=== PATIENT | male | born 1950 | race Caucasian/White ===

== ENCOUNTER 2017-02-09 14:12 | Inpatient (IN) | payer MEDICARE ==
[~2017-02-09] VITALS: Ht 177.8 cm; Wt 90.5 kg
[2017-02-09 14:14] VITALS: BP 154/82; PULSE 83; RESP 16; TEMP 97.8; O2SAT 97
--- NOTE | 2017-02-09 14:40 | PD ---
HPI Chief Complaint: Injury Time Seen by Provider: 14:25 Travel History International Travel<30 days: No Contact w/Intl Traveler<30days: No Traveled to known affect area: No History of Present Illness HPI 55 YO M with PMH of DM T2 presents to the ED for evaluation of 2 week history of right foot ulcer. Patient can identify no acute injury. He denies pain of the area, fevers, chills, nausea, vomiting. He states that the surrounding redness worsened 4 days ago which caused him to seek treatment. He saw the physician's assistant Dr. Fontanez today who sent him for admission. Patient states that he has not been taking his daibetic medications for "about a month" because "I' m in the doughnut hole on my insurance." PFSH Past Medical History Diabetes: Yes Patient Takes Glucophage: No Past Surgical History Abdominal Surgery: Yes (inguinal hernia repair 1996) Social History Alcohol Use: No Tobacco Use: No Substance Use: No Allergies-Medications (Allergen,Severity, Reaction): Coded Allergies: No Known Allergies (Unverified , 02/09/17) Reported Meds & Prescriptions Reported Meds & Active Scripts Active Active Prescriptions or Reported Medications Unobtainable Review of Systems Except as stated in HPI: all other systems reviewed are Neg Physical Exam Narrative GENERAL: Well-nourished, well-developed patient. SKIN: Focused skin assessment warm/dry. HEAD: Normocephalic. EYES: No scleral icterus. No injection or drainage. NECK: Supple, trachea midline. No JVD or lymphadenopathy. CARDIOVASCULAR: Regular rate and rhythm without murmurs, gallops, or rubs. RESPIRATORY: Breath sounds equal bilaterally. No accessory muscle use. GASTROINTESTINAL: Abdomen soft, non-tender, nondistended. MUSCULOSKELETAL: No cyanosis, trace edema of the left foot to the mid gallardo. FOCUSED RIGHT FOOT EXAM: 8cm x 5 cm diabetic ulcer right lateral fore foot. Penetrates to the muscle. Mild surrounding erythema to the midfoot. Patient is able to wiggle the toes. Sensation diminished in the forefoot. 2+ DP pulse BACK: Nontender without obvious deformity. No CVA tenderness. Data Data Last Documented VS Vital Signs Date Time Temp Pulse Resp B/P (MAP) Pulse Ox O2 Delivery O2 Flow Rate FiO2 02/09/17 14:27 96 Room Air 02/09/17 14:14 97.8 83 16 154/82 (106) Orders Orders Basic Metabolic Panel (Bmp) (02/09/17 14:34) Complete Blood Count With Diff (02/09/17 14:34) Blood Culture (02/09/17 14:34) Wound Culture And Gram Stain (02/09/17 14:34) Iv Access Insert/Monitor (02/09/17 14:34) Westergren Sedimentation Rate (02/09/17 14:34) C-Reactive Protein (Crp) (02/09/17 14:34) Coag Profile (02/09/17 14:34) Mri Foot W&W/O Contrast (02/09/17 ) Consult Podiatry (02/09/17 ) Vancomycin Inj (Vancomycin Inj) (02/09/17 15:15) Piperacil-Tazo 4.5 Gm Premix (Zosyn 4.5 (02/09/17 15:15) (Hub Use Only)Inp Phy Cons/Ref (02/09/17 ) Admit Order (Ed Use Only) (02/09/17 15:12) Labs Laboratory Tests Test 02/09/17 14:10 White Blood Count 10.3 TH/MM3 Red Blood Count 4.66 MIL/MM3 Hemoglobin 13.6 GM/DL Hematocrit 39.4 % Mean Corpuscular Volume 84.7 FL Mean Corpuscular Hemoglobin 29.3 PG Mean Corpuscular Hemoglobin Concent 34.6 % Red Cell Distribution Width 13.2 % Platelet Count 247 TH/MM3 Mean Platelet Volume 8.9 FL Neutrophils (%) (Auto) 70.3 % Lymphocytes (%) (Auto) 22.8 % Monocytes (%) (Auto) 5.6 % Eosinophils (%) (Auto) 0.8 % Basophils (%) (Auto) 0.5 % Neutrophils # (Auto) 7.2 TH/MM3 Lymphocytes # (Auto) 2.3 TH/MM3 Monocytes # (Auto) 0.6 TH/MM3 Eosinophils # (Auto) 0.1 TH/MM3 Basophils # (Auto) 0.1 TH/MM3 CBC Comment DIFF FINAL Differential Comment Prothrombin Time 10.3 SEC Prothromb Time International Ratio 0.9 RATIO Activated Partial Thromboplast Time 25.3 SEC Blood Urea Nitrogen 16 MG/DL Creatinine 1.07 MG/DL Random Glucose 420 MG/DL Calcium Level 8.9 MG/DL Sodium Level 136 MEQ/L Potassium Level 4.1 MEQ/L Chloride Level 102 MEQ/L Carbon Dioxide Level 27.1 MEQ/L Anion Gap 7 MEQ/L Estimat Glomerular Filtration Rate 69 ML/MIN C-Reactive Protein 3.92 MG/DL MDM Medical Decision Making Medical Screen Exam Complete: Yes Emergency Medical Condition: Yes Differential Diagnosis diabeitc ulcer versus cellulitis versus osteomyelitis versus other Narrative Course 55 YO M with PMH of DM T2 presents to the ED for evaluation of 2 week history of right foot ulcer. Patient can identify no acute injury. He denies pain of the area, fevers, chills, nausea, vomiting. He states that the surrounding redness worsened 4 days ago which caused him to seek treatment. He saw the physician's assistant Dr. Fontanez today who sent him for admission. Patient states that he has not been taking his diabetic medications for "about a month" because "I' m in the doughnut hole on my insurance." Vitals reviewed. Physical exam reveals a chronic appearing wound at the base of the right toe measuring 8 x 4 cm, penetrating to the muscular layer. Mild surrounding erythema with trace edema. No warmth, no discharge. IV was established. Per Dr. Fontanez's very detailed instructions lab work, radiological studies were ordered. Consult placed to Dr. Samuel. IV vancomycin and Zosyn was initiated. I discussed the patient with the residents who agreed to accept him to the medicine service with Dr. Pruett attending. Please see medicine and podiatry notes for disposition. Scripts Unable to Obtain Active Prescriptions or Reported Meds Komal Moreno Feb 09, 2017 14:40
[2017-02-09] MEDS ORDERED: PIPERACIL-TAZO 4.5 GM PREMIX 100 ML IV ONE (15:15)
[2017-02-09] MEDS ORDERED: VANCOMYCIN INJ 1,000 MG in SODIUM CHLOR 0.9% 250 ML INJ 250 ML IV ONE (15:15)
[2017-02-09 15:27] LABS: AUTOMATED NEUTROPHIL # 7.2 TH/MM3 (1.8-7.7); BASOPHIL # 0.1 TH/MM3 (0-0.2); BASOPHIL % 0.5 % (0.0-2.0); EOSINOPHIL # 0.1 TH/MM3 (0-0.4); EOSINOPHIL % 0.8 % (0.0-4.0); HEMATOCRIT 39.4 % (39.0-51.0); HEMO FLAGS DIFF FINAL; LYMPH % 22.8 % (9.0-44.0); LYMPHOCYTE # 2.3 TH/MM3 (1.0-4.8); MEAN CELL VOLUME 84.7 FL (80.0-100.0); MEAN CORPUSCULAR HEMOGLOBIN 29.3 PG (27.0-34.0); MEAN CORPUSCULAR HGB CONC 34.6 % (32.0-36.0); MONO % 5.6 % (0.0-8.0); NEUT % 70.3 % (16.0-70.0); PLATELET COUNT 247 TH/MM3 (150-450); RED BLOOD COUNT 4.66 MIL/MM3 (4.50-5.90); RED CELL DISTRIBUTION WIDTH 13.2 % (11.6-17.2); WHITE BLOOD COUNT 10.3 TH/MM3 (4.0-11.0)
[2017-02-09] MEDS ORDERED: NALOXONE HCL 0.4 MG/ML AMP IV PUSH PRN (15:30)
[2017-02-09] MEDS ORDERED: SODIUM CHLORIDE 0.9% FLUSH 10 ML FLUSH IV FLUSH PRN (15:30)
[2017-02-09] MEDS ORDERED: MAGNESIUM HYDROXIDE SUSP 30 ML CUP PO PRN (15:30)
[2017-02-09] MEDS ORDERED: ONDANSETRON HCL 4 MG/2 ML VIAL IVP PRN (15:30)
[2017-02-09] MEDS ORDERED: LACTULOSE SYRUP 20 GM/30 ML CUP PO PRN (15:30)
[2017-02-09] MEDS ORDERED: BISACODYL 10 MG SUPP RECTAL PRN (15:30)
[2017-02-09] MEDS ORDERED: TEMAZEPAM 15 MG CAP PO PRN (15:30)
[2017-02-09] MEDS ORDERED: DIPHTH/TETANUS/ACEL PERTUSSIS (BOOSTER) 0.5 ML VIAL/PFS IM ONE (15:30)
[2017-02-09] MEDS ORDERED: GLUCAGON 1 MG/ML VIAL OTHER PRN (15:30)
[2017-02-09] MEDS ORDERED: SENNOSIDES 8.6 MG TAB PO PRN (15:30)
[2017-02-09] MEDS ORDERED: DEXTROSE 50% IN WATER 50 ML VIAL(D50) IV PUSH PRN (15:30)
--- NOTE | 2017-02-09 15:39 | HHI.FPPN ---
Subjective Remarks Pt. seen, examined and discussed with Nicky Wren and José Miguel. This is a 66 yo male known T2DM with hx of small cut right lateral foot at base of 5th toe approximately 2.5 weeks ago. It seemed fairly stable until , Day 02-04-17 when he noted swelling, redness and chills; no fever. The swelling has extended up his lower leg. Describes decreased sensation both feet. He got an appt. with Dr. Fontanez, podiatry, and was seen today. She sent him for admission with plan for surgery tomorrow. He had been on Janumet but was not taking it due to cost. Was taking an OTC herbal for his diabetes. Sugars running up to 280. Works part-time in [employer]. Lives alone, no tobacco, etoh or illicits. Mom and dad , alzheimer's and Parkinsons. Two adult children L&W. Has an appointment set up for next week with a local physician; has not seen this doctor yet. Last A1C was in June, - 8.5ish. See H&P for additional historical details, including past, family, social history and review of systems at the time of admission. Objective Vitals Vital Signs Date Time Temp Pulse Resp B/P (MAP) Pulse Ox O2 Delivery O2 Flow Rate FiO2 02/09/17 14:27 96 Room Air 02/09/17 14:14 97.8 83 16 154/82 (106) 97 Room Air Result Diagram: 02/09/17 1410 Other Results Laboratory Tests Test 02/09/17 14:10 White Blood Count 10.3 TH/MM3 Red Blood Count 4.66 MIL/MM3 Hemoglobin 13.6 GM/DL Hematocrit 39.4 % Mean Corpuscular Volume 84.7 FL Mean Corpuscular Hemoglobin 29.3 PG Mean Corpuscular Hemoglobin Concent 34.6 % Red Cell Distribution Width 13.2 % Platelet Count 247 TH/MM3 Mean Platelet Volume 8.9 FL Neutrophils (%) (Auto) 70.3 % Lymphocytes (%) (Auto) 22.8 % Monocytes (%) (Auto) 5.6 % Eosinophils (%) (Auto) 0.8 % Basophils (%) (Auto) 0.5 % Neutrophils # (Auto) 7.2 TH/MM3 Lymphocytes # (Auto) 2.3 TH/MM3 Monocytes # (Auto) 0.6 TH/MM3 Eosinophils # (Auto) 0.1 TH/MM3 Basophils # (Auto) 0.1 TH/MM3 CBC Comment DIFF FINAL Differential Comment Imaging MRI with and without contrast pending. Objective Remarks O. CONSTITUTIONAL/GEN: normally nourished, in NAD. EYES: conjunctiva normal, PERRLA, EOMI. ENT: Mouth and pharynx normal. NECK: thyroid midline, carotids symmetrical. Supple. LUNGS: clear A-P, respiratory effort is normal. CARDIOVASCULAR: RR without murmur or gallop. GI/ABD: soft without masses, without organomegaly. BS + : no CVA tenderness NEURO: Decreased sensation to light touch both feet distally. SKIN: color normal, no rashes noted. HEME/LYMPH: no bruising, petechia or significant adenopathy MUSC: back is normal in appearance. Distal right leg/foot swollen with redness extending to mid calf, 1-2+ pitting edena right lower leg. 3 cm x 3 cm ulcer laterally at 5th MTP area. PSYCH/MENTAL STATUS: Alert and oriented x 3. A/P Assessment and Plan 66 yo male with T2DM, poorly controlled, with large ulcer right lateral foot. Discharge Planning Case management consultation. Attending Attestation Patient seen and examined. Case reviewed and discussed with the resident team. Agree with plan of care as discussed with me and documented in the resident note. Graciela Pruett MD Feb 09, 2017 15:39
[2017-02-09 15:43] LABS: APTT (PATIENT) 25.3 SEC (24.3-30.1); INTERNATIONAL NORMALIZED RATIO 0.9 RATIO; PROTHROMBIN TIME - PATIENT 10.3 SEC (9.8-11.6)
[2017-02-09 15:45] VITALS: BP 138/72; TEMP 98
[2017-02-09 15:45] LABS: BICARBONATE 27.1 MEQ/L (21.0-32.0); POTASSIUM 4.1 MEQ/L (3.5-5.1)
[2017-02-09] MEDS ORDERED: Vancomycin Consult Pharmacy 1 EA OTHER SCH (15:45)
--- NOTE | 2017-02-09 15:47 | HHI.HP ---
HPI Service Family Medicine Primary Care Physician No Primary Care Physician Admission Diagnosis diabetic foot wound Diagnoses: International Travel<30 Days: No Contact w/Intl Traveler<30days: No Known Affected Area: No History of Present Illness 66 yr old M w/ PMHx of uncontrolled T2DM presents to the ED from Dr. Fontanez's office for diabetic foot wound. He reports getting a cut on his right lateral forefoot2 weeks ago. He states the the wound has been worsening. He noticed a lot of swelling on and decided to make an appointment to see his painter and grader cork. He reports taking Januvia BID for his DM. He has not been able to afford his medications for the past month due to insurance issues and has been taking herbal supplements instead. He has been checking his sugars once a week in the mornings before breakfast. They have been running 200-280. His last A1c was in June of this year and was 8.5-9% per patient. He endorses 50% loss of sensation in his feet, most likely due to diabetic neuropathy. He denies fever, chills, night sweats, CP, SOB, and N/V. Review of Systems Constitutional: DENIES: Fever, Weight loss, Chills Endocrine: DENIES: Polydipsia Eyes: DENIES: Blurred vision Respiratory: DENIES: Shortness of breath Cardiovascular: COMPLAINS OF: Lower Extremity Edema (slight lower extremity edema ), DENIES: Chest pain Gastrointestinal: DENIES: Abdominal pain Genitourinary: DENIES: Dysuria Musculoskeletal: DENIES: Muscle aches Neurologic: COMPLAINS OF: Paresthesias (diabetic neuropathy ), DENIES: Headache Past Family Social History Past Medical History DM Depression Past Surgical History Right heel reconstruction in 2012 Allergies: Coded Allergies: No Known Allergies (Unverified , 02/09/17) Family History Dad- Alz's dementia, Parkinson Social History Works at a [employer] Denies smoking Denies alcohol use Denies illicit drug use Physical Exam Vital Signs Vital Signs Date Time Temp Pulse Resp B/P (MAP) Pulse Ox O2 Delivery O2 Flow Rate FiO2 02/09/17 15:45 98.0 138/72 (94) 02/09/17 14:27 96 Room Air 02/09/17 14:14 97.8 83 16 154/82 (106) 97 Room Air Physical Exam GENERAL: pleasant, in NAD SKIN: 3x3 cm large ulcer with surrounding erythema on right lateral forefoot HEAD: Atraumatic. Normocephalic. EYES: PERRLA, EOMI ENT: throat clear, no carotid bruits NECK: Trachea midline. No JVD or lymphadenopathy. CARDIOVASCULAR: Regular rate and rhythm without murmurs, gallops, or rubs. RESPIRATORY: Clear to auscultation. Breath sounds equal bilaterally. No wheezes , rales, or rhonchi. GASTROINTESTINAL: Abdomen soft, non-tender, nondistended. No hepato-splenomegaly , or palpable masses. No guarding. MUSCULOSKELETAL: mild ankle swelling of right foot, 3x3 cm ulcer on right lateral forefoot, pedal pulses 2+, decreased sensation b/l feet NEUROLOGICAL: Awake and alert. Oriented x3 Laboratory Laboratory Tests Test 02/09/17 14:10 02/09/17 15:25 White Blood Count 10.3 Red Blood Count 4.66 Hemoglobin 13.6 Hematocrit 39.4 Mean Corpuscular Volume 84.7 Mean Corpuscular Hemoglobin 29.3 Mean Corpuscular Hemoglobin Concent 34.6 Red Cell Distribution Width 13.2 Platelet Count 247 Mean Platelet Volume 8.9 Neutrophils (%) (Auto) 70.3 Lymphocytes (%) (Auto) 22.8 Monocytes (%) (Auto) 5.6 Eosinophils (%) (Auto) 0.8 Basophils (%) (Auto) 0.5 Neutrophils # (Auto) 7.2 Lymphocytes # (Auto) 2.3 Monocytes # (Auto) 0.6 Eosinophils # (Auto) 0.1 Basophils # (Auto) 0.1 CBC Comment DIFF FINAL Differential Comment Prothrombin Time 10.3 Prothromb Time International Ratio 0.9 Activated Partial Thromboplast Time 25.3 Date/Time Source Procedure Growth Status 02/09/17 14:10 Blood Peripheral Aerobic Blood Culture Pending Received 02/09/17 14:10 Blood Peripheral Anaerobic Blood Culture Pending Received 02/09/17 14:10 Wound Foot Gram Stain Pending Received 02/09/17 14:10 Wound Foot Wound Culture Pending Received Result Diagram: 02/09/17 1410 Caprini VTE Risk Assessment Caprini VTE Risk Assessment: Mod/High Risk (score >= 2) Caprini Risk Assessment Model Point Value = 1 Point Value = 2 Point Value = 3 Point Value = 5 Age 41-60 Minor surgery BMI > 25 kg/m2 Swollen legs Varicose veins or History of unexplained or recurrent spontaneous Oral contraceptives or hormone replacement Sepsis (< 1 month) Serious lung disease, including pneumonia (< 1 month) Abnormal pulmonary function Acute myocardial infarction Congestive heart failure (< 1 month) History of inflammatory bowel disease Medical patient at bed rest Age 61-74 Arthroscopic surgery Major open surgery (> 45 min) Laparoscopic surgery (> 45 min) Malignancy Confined to bed (> 72 hours) Immobilizing plaster cast Central venous access Age >= 75 History of VTE Family history of VTE Factor V Leiden Prothrombin [id number] Lupus anticoagulant Anticardiolipin antibodies Elevated serum homocysteine Heparin-induced thrombocytopenia Other congenital or acquired thrombophilia Stroke (< 1 month) Elective arthroplasty Hip, pelvis, or leg fracture Acute spinal cord injury (< 1 month) Prophylaxis Regimen Total Risk Factor Score Risk Level Prophylaxis Regimen 0-1 Low Early ambulation 2 Moderate Order ONE of the following: *Sequential Compression Device (SCD) *Heparin 5000 units SQ BID 3-4 Higher Order ONE of the following medications: *Heparin 5000 units SQ TID *Enoxaparin/Lovenox 40 mg SQ daily (WT < 150 kg, CrCl > 30 mL/min) *Enoxaparin/Lovenox 30 mg SQ daily (WT < 150 kg, CrCl > 10-29 mL/min) *Enoxaparin/Lovenox 30 mg SQ BID (WT < 150 kg, CrCl > 30 mL/min) AND/OR *Sequential Compression Device (SCD) 5 or more Highest Order ONE of the following medications: *Heparin 5000 units SQ TID (Preferred with Epidurals) *Enoxaparin/Lovenox 40 mg SQ daily (WT < 150 kg, CrCl > 30 mL/min) *Enoxaparin/Lovenox 30 mg SQ daily (WT < 150 kg, CrCl > 10-29 mL/min) *Enoxaparin/Lovenox 30 mg SQ BID (WT < 150 kg, CrCl > 30 mL/min) AND *Sequential Compression Device (SCD) Assessment and Plan Assessment and Plan 66 yo male with uncontrolled T2DM admitted for diabetic wound on right lateral forefoot Code Status Full Code Discussed Condition With Dr. Pruett and Dr. Valdez Problem List: (1) Diabetic foot ulcer ICD Codes: E11.621 - Type 2 diabetes mellitus with foot ulcer; L97.509 - Non- pressure chronic ulcer of other part of unspecified foot with unspecified severity Status: Acute Plan: 2 week hx of 3cm x 3cm diabetic wound on right lateral forefoot * Podiatry consulted, Dr. Eckert, appreciated recs * NPO after breakfast tomorrow for surgery * IV Zosyn and Vancomycin started * Afebrile and WBC wnl * CRP elevated at 3.92, ESR elevated at 29 * PT, PTT wnl * Blood cultures and wound culture pending * MRI w/ and w/o IV contrast of R foot ordered (2) Diabetes mellitus ICD Codes: E11.9 - Type 2 diabetes mellitus without complications Status: Chronic Plan: Uncontrolled T2DM * Glucose monitoring with low novolog SS * museum educator consulted * Case management consulted (3) Nutrition, metabolism, and development symptoms ICD Codes: R63.8 - Other symptoms and signs concerning food and fluid intake Plan: Diet: Diabetic diet, NPO after breakfast tomorrow Fluids: Not indicated at this time Other: vitals q4h, monitor I& Os DVT ppx: heparin 5,000 units sq Physician Certification 2 Midnight Certification Type: Admission for Inpatient Services Order for Inpatient Services The services are ordered in accordance with Medicare regulations or non- Medicare payer requirements, as applicable. In the case of services not specified as inpatient-only, they are appropriately provided as inpatient services in accordance with the 2-midnight benchmark. Estimated LOS (days): 2 2 days is the estimated time the patient will need to remain in the hospital, assuming treatment plan goals are met and no additional complications. Post-Hospital Plan: Home Problem Qualifiers (1) Diabetic foot ulcer: (2) Diabetes mellitus: Bernadine Lewis MD R1 Feb 09, 2017 15:47
[2017-02-09] MEDS ORDERED: HEPARIN SODIUM - SQ 10,000 UNITS/ML VIAL SQ ONE (16:00)
[2017-02-09 16:12] VITALS: BP 131/67; PULSE 72; RESP 18; TEMP 98.3; O2SAT 95
[2017-02-09] MEDS: INSULIN ASPART SUPPLEMENTAL SCALE SQ SCH ×2 (17:54→23:06)
[2017-02-09 20:12] VITALS: BP 128/70; PULSE 77; RESP 18; TEMP 99.1; O2SAT 95
[2017-02-09 20:53] LABS: HEMOGLOBIN A1a 1.4 %; HEMOGLOBIN A1b 1.4 %; HEMOGLOBIN Ao 73.3 %; HEMOGLOBIN F 1.8 %; HEMOGLOBIN LA1C 4.6 %
[2017-02-09] MEDS ORDERED: INFLUENZA VIRUS VACCINE (QUADRIVALENT) 0.5 ML SYR IM ONE (21:00)
[2017-02-09] MEDS ORDERED: GADODIAMIDE PF 287 MG/ML 5 ML VIAL (for RAD MRI) IV PUSH ONE (21:05)
--- NOTE | 2017-02-09 21:52 | RADRPT ---
EXAM DATE/TIME: 02/09/2017 20:37 [facility] COMPARISON: No previous studies available for comparison. INDICATIONS : Cellulitis. Wound near head of fifth metatarsal. CONTRAST: 18 cc Omniscan (gadodiamide) IV MEDICAL HISTORY : Neuropathy. Diabetes. SURGICAL HISTORY : Right heel. Right fourth metatarsal. ENCOUNTER: Initial ACUITY: 2 weeks PAIN SCORE: 0/10 LOCATION: Right foot TECHNIQUE: Multiplanar, multisequence MRI examination was performed without contrast and after the intravenous a dministration of gadolinium. FINDINGS: There is edema and fluid in the soft tissues of the lateral forefoot most characteristic of celluliti s. No discrete drainable fluid collections are identified. No significant marrow signal abnormality i n the fifth toe or fifth metatarsal to suggest osteomyelitis. There is susceptibility around the four th metatarsal head presumably surgical hardware. Also surgical hardware is suspected in the hindfoot or ankle. There is some signal abnormality in the distal first metatarsal which may present prior tra khushi. CONCLUSION: 1. No definite evidence for osteomyelitis. Cellulitis of the lateral forefoot. Surgical hardware pres ent as above. Christopher Chin MD on February 09, 2017 at 21:46 Board Certified Radiologist. This report was verified electronically.
[2017-02-09] MEDS: DOCUSATE SODIUM 50 MG/SENNA 8.6 MG TAB PO SCH (22:32)
[2017-02-09] MEDS: PIPERACIL-TAZO 3.375 GM PREMIX 50 ML IV SCH (22:33)
[2017-02-09] MEDS: SODIUM CHLORIDE 0.9% FLUSH 10 ML FLUSH IV FLUSH SCH (22:33)
[2017-02-09] MEDS: VANCOMYCIN INJ 1,500 MG in SODIUM CHLORID 0.9% 500 ML INJ 500 ML IV SCH (23:05)
[2017-02-09 23:18] VITALS: BP 139/77; PULSE 69; RESP 18; TEMP 97.6; O2SAT 95
[2017-02-10 00:05] VITALS: BP 126/65; PULSE 74; RESP 18; TEMP 97.9; O2SAT 94
[2017-02-10] MEDS: PIPERACIL-TAZO 3.375 GM PREMIX 50 ML IV SCH ×4 (02:00→20:33)
[2017-02-10 04:12] VITALS: BP 137/65; PULSE 71; RESP 18; TEMP 97.8; O2SAT 93
[2017-02-10] MEDS: SODIUM CHLORIDE 0.9% FLUSH 10 ML FLUSH IV FLUSH SCH ×2 (07:37→20:33)
[2017-02-10 08:07] VITALS: BP 135/80; PULSE 77; RESP 18; TEMP 98.2; O2SAT 93
[2017-02-10] MEDS: DOCUSATE SODIUM 50 MG/SENNA 8.6 MG TAB PO SCH ×2 (08:21→20:33)
[2017-02-10] MEDS: INSULIN ASPART SUPPLEMENTAL SCALE SQ SCH ×4 (08:22→20:34)
[2017-02-10 09:02] LABS: AUTOMATED NEUTROPHIL # 5.2 TH/MM3 (1.8-7.7); BASOPHIL % 0.5 % (0.0-2.0); EOSINOPHIL # 0.1 TH/MM3 (0-0.4); EOSINOPHIL % 1.4 % (0.0-4.0); HEMATOCRIT 37.6 % (39.0-51.0); HEMO FLAGS DIFF FINAL; LYMPH % 30.6 % (9.0-44.0); LYMPHOCYTE # 2.6 TH/MM3 (1.0-4.8); MEAN CELL VOLUME 84.4 FL (80.0-100.0); MEAN CORPUSCULAR HEMOGLOBIN 29.5 PG (27.0-34.0); MEAN CORPUSCULAR HGB CONC 34.9 % (32.0-36.0); MONO % 6.2 % (0.0-8.0); NEUT % 61.3 % (16.0-70.0); PLATELET COUNT 225 TH/MM3 (150-450); RED BLOOD COUNT 4.46 MIL/MM3 (4.50-5.90); RED CELL DISTRIBUTION WIDTH 12.9 % (11.6-17.2); WHITE BLOOD COUNT 8.5 TH/MM3 (4.0-11.0)
[2017-02-10 09:29] LABS: ANION GAP 7 MEQ/L (5-15); AST (GOT) 12 U/L (15-37); BLOOD UREA NITROGEN 14 MG/DL (7-18); CHLORIDE 104 MEQ/L (98-107); GLOMERULAR FILTRATION RATE 95 ML/MIN (>89); POTASSIUM 3.8 MEQ/L (3.5-5.1); SODIUM (NA) 137 MEQ/L (136-145)
--- NOTE | 2017-02-10 09:34 | MB ---
cc: OSORIO,GRABIEL DATE OF CONSULTATION 02/10/2017 CHIEF COMPLAINT Right diabetic foot ulceration. HISTORY OF PRESENT ILLNESS Mr. Morrow was seen yesterday in my office by my colleague Dr. Fontanez. This was his first visit with Dr. Fontanez and he presented after noting bleeding on the bottom of his right foot. He is unsure how it started, but believes it started as a blister from his shoe. The patient is diabetic, but has not seen a doctor since June. He thought his A1c was around 9, but it is truly 11.1. He admits to diabetic neuropathy, but has not seen a foot doctor either. He states that the foot is looking better today after the overnight antibiotics. He denies any pain, nausea, vomiting, fever or chills. PAST MEDICAL HISTORY Includes: 1. Diabetes mellitus 2. Diabetic peripheral neuropathy 3. Depression PAST SURGICAL HISTORY Includes a right calcaneal ORIF in 2012. ALLERGIES No known drug allergies. FAMILY HISTORY Noncontributory SOCIAL HISTORY The patient works at a warehouse. Denies any alcohol, smoking or drug abuse. Recently moved to the area. VITAL SIGNS Temperature is 97.8 with a T-max of 99.1, pulse 71, respiratory rate 18, blood pressure 137/65, pulse ox 93% O2 at room air. LABS White count 8.5 down from 10.3, hemoglobin 13.1, hematocrit 37.6, platelets 225, INR 0.9. Sodium 137, potassium 4.1, chloride 102, BUN 16, glucose 420, A1c 11.1, C-reactive protein 3.9. Blood and wound cultures are pending. MRI was negative for any gas in the soft tissues or definitive signs of osteomyelitis. PHYSICAL EXAM The patient has bilateral DP and PT palpable pulses. Cap fill time is less than 30 seconds. Gross sensation is diminished in the left, but is unremarkable. The right foot has a plantar lateral ulceration at the second metatarsal head approximately 2.0 x 1 cm x 2.5 cm. It is somewhat soft and boggy in nature. It does probe deep, but no exposed bone or direct bone probing. There is surrounding erythema ascending to the middle aspect of the foot. No malodor. Mild serous drainage. Minimal edema. No pain or tenderness noted. ASSESSMENT AND PLAN 1. Stage II ulceration with cellulitis. - Cellulitis is improving, but has not fully resolved. - Wound care orders placed for nursing staff. - The patient will require further antibiotics and finalized wound cultures before a discharge plan can be formulated, but will like be able to discharge on two weeks of antibiotics. - The patient states he already has an appointment with the new family doctor next week. - Weight-bear as tolerated in a surgical shoe. Would benefit from off-loading diabetic shoes in the outpatient setting. Thank you for this consultation. Grabiel MAIN/AISHA /9:09 AM /9:15 AM MTDAlvarez
[2017-02-10 09:35] LABS: ALKALINE PHOSPHATASE 116 U/L (45-117); ALT (GPT) 21 U/L (12-78); TOTAL BILIRUBIN ADULT 0.9 MG/DL (0.2-1.0)
--- NOTE | 2017-02-10 10:29 | HHI.FPPN ---
Subjective Remarks Patient is doing well this morning. Denies fevers, chills, n/v/d, sob, cp. Seen by DM education and podiatry. (Alfred Pruett MD, R3) Objective Vitals Vital Signs Date Time Temp Pulse Resp B/P (MAP) Pulse Ox O2 Delivery O2 Flow Rate FiO2 02/10/17 08:07 98.2 77 18 135/80 (98) 93 02/10/17 04:12 97.8 71 18 137/65 (89) 93 02/10/17 04:00 Room Air 02/10/17 00:05 97.9 74 18 126/65 (85) 94 02/10/17 00:00 Room Air 02/09/17 20:12 99.1 77 18 128/70 (89) 95 02/09/17 20:00 Room Air 02/09/17 16:12 98.3 72 18 131/67 (88) 95 02/09/17 15:45 98.0 138/72 (94) 02/09/17 14:27 96 Room Air 02/09/17 14:14 97.8 83 16 154/82 (106) 97 Room Air I/O 02/09/17 02/09/17 02/09/17 02/10/17 02/10/17 02/10/17 07:00 15:00 23:00 07:00 15:00 23:00 Intake Total 815 ml Balance 815 ml Intake Oral 240 ml IV Total 575 ml # Voids 4 # Bowel Movements 0 (Alfred Pruett MD, R3) Result Diagram: 02/10/1774502/10/17745 Imaging Last Impressions Foot MRI 02/09/172033 Signed Impressions: Service Date/Time: Thursday, February 09, 2017 20:37 - CONCLUSION: 1. No definite evidence for osteomyelitis. Cellulitis of the lateral forefoot. Surgical hardware present as above. Christopher Chin MD Objective Remarks O. CONSTITUTIONAL/GEN: normally nourished, in NAD. EYES: conjunctiva normal, PERRLA, EOMI. ENT: Mouth and pharynx normal. NECK: thyroid midline, carotids symmetrical. Supple. LUNGS: clear A-P, respiratory effort is normal. CARDIOVASCULAR: RR without murmur or gallop. GI/ABD: soft without masses, without organomegaly. BS + : no CVA tenderness NEURO: Decreased sensation to light touch both feet distally. SKIN: color normal, no rashes noted. HEME/LYMPH: no bruising, petechia or significant adenopathy MUSC: back is normal in appearance. Distal right leg/foot with improvement in swelling. 1+ pitting edema right lower leg. 3 cm x 3 cm ulcer laterally at 5th MTP area. PSYCH/MENTAL STATUS: Alert and oriented x 3. (Alfred Pruett MD, R3) A/P Assessment and Plan 66 yo male with uncontrolled T2DM admitted for diabetic wound on right lateral forefoot Podiatry consulted. Discharge Planning Case management consultation. (Alfred Pruett MD, R3) Attending Attestation Patient seen and examined. Case reviewed and discussed with the resident team. Agree with plan of care as discussed with me and documented in the resident note. (Graciela Pruett MD) Problem List: (1) Diabetic foot ulcer ICD Codes: E11.621 - Type 2 diabetes mellitus with foot ulcer; L97.509 - Non- pressure chronic ulcer of other part of unspecified foot with unspecified severity Status: Acute Plan: 2 week hx of 3cm x 3cm diabetic wound on right lateral forefoot * Podiatry consulted, Dr. Wells * MRI shows no osteomyelitis * No surgery indicated at this time * Continue IV Zosyn and Vancomycin * Blood cultures and wound culture pending (2) Diabetes mellitus ICD Codes: E11.9 - Type 2 diabetes mellitus without complications Status: Chronic Plan: Uncontrolled T2DM * Glucose monitoring with low novolog SS * certified diabetes educator consulted * Case management consulted * start metformin 500 mg bid. Take with food (3) Nutrition, metabolism, and development symptoms ICD Codes: R63.8 - Other symptoms and signs concerning food and fluid intake Plan: Diet: Diabetic diet Fluids: Not indicated at this time Other: vitals q4h, monitor I& Os DVT ppx: heparin 5,000 units sq (Alfred Pruett MD, R3) Problem Qualifiers (1) Diabetic foot ulcer: (2) Diabetes mellitus: Alfred Pruett MD, R3 Feb 10, 2017 10:28 Graciela Pruett MD Feb 10, 2017 11:37
[2017-02-10] MEDS: COLLAGENASE OINT 30 GM TUBE TOPICAL SCH (12:05)
[2017-02-10] MEDS: metFORMIN HCL 500 MG TAB PO SCH ×2 (12:05→18:09)
[2017-02-10] MEDS: VANCOMYCIN INJ 1,500 MG in SODIUM CHLORID 0.9% 500 ML INJ 500 ML IV SCH ×2 (12:05→23:30)
[2017-02-10 12:07] VITALS: BP 112/64; PULSE 79; RESP 18; TEMP 98.2; O2SAT 93
[2017-02-10] MEDS: ACETAMINOPHEN 325 MG TAB PO PRN (15:37)
[2017-02-10 16:07] VITALS: BP 131/75; PULSE 85; RESP 18; TEMP 98.7; O2SAT 94
[2017-02-10 19:58] VITALS: BP 135/76; PULSE 70; RESP 18; TEMP 98.3; O2SAT 94
[2017-02-11] MEDS: PIPERACIL-TAZO 3.375 GM PREMIX 50 ML IV SCH ×4 (03:51→20:04)
[2017-02-11 04:40] VITALS: BP 128/79; PULSE 74; RESP 18; TEMP 98.1; O2SAT 93
[2017-02-11 06:56] LABS: AUTOMATED NEUTROPHIL # 5.4 TH/MM3 (1.8-7.7); BASOPHIL # 0.1 TH/MM3 (0-0.2); BASOPHIL % 0.6 % (0.0-2.0); EOSINOPHIL # 0.1 TH/MM3 (0-0.4); EOSINOPHIL % 1.6 % (0.0-4.0); HEMO FLAGS DIFF FINAL; LYMPHOCYTE # 2.9 TH/MM3 (1.0-4.8); MEAN CELL VOLUME 84.1 FL (80.0-100.0); MEAN CORPUSCULAR HEMOGLOBIN 29.3 PG (27.0-34.0); MEAN CORPUSCULAR HGB CONC 34.8 % (32.0-36.0); MONO % 5.9 % (0.0-8.0); NEUT % 59.9 % (16.0-70.0); PLATELET COUNT 235 TH/MM3 (150-450); RED BLOOD COUNT 4.51 MIL/MM3 (4.50-5.90); RED CELL DISTRIBUTION WIDTH 13.2 % (11.6-17.2)
[2017-02-11 07:26] LABS: ALKALINE PHOSPHATASE 110 U/L (45-117); ALT (GPT) 22 U/L (12-78); ANION GAP 7 MEQ/L (5-15); AST (GOT) 10 U/L (15-37); BICARBONATE 26.6 MEQ/L (21.0-32.0); BLOOD UREA NITROGEN 14 MG/DL (7-18); CHLORIDE 106 MEQ/L (98-107); GLOMERULAR FILTRATION RATE 95 ML/MIN (>89); POTASSIUM 3.8 MEQ/L (3.5-5.1); SODIUM (NA) 140 MEQ/L (136-145); TOTAL BILIRUBIN ADULT 0.9 MG/DL (0.2-1.0)
[2017-02-11 08:00] VITALS: BP 139/79; PULSE 70; RESP 18; TEMP 98.3; O2SAT 93
[2017-02-11] MEDS: metFORMIN HCL 500 MG TAB PO SCH ×2 (09:27→17:07)
[2017-02-11] MEDS: DOCUSATE SODIUM 50 MG/SENNA 8.6 MG TAB PO SCH ×2 (09:27→20:05)
[2017-02-11] MEDS: SODIUM CHLORIDE 0.9% FLUSH 10 ML FLUSH IV FLUSH SCH ×2 (09:27→20:04)
[2017-02-11] MEDS: COLLAGENASE OINT 30 GM TUBE TOPICAL SCH (09:27)
[2017-02-11] MEDS: INSULIN ASPART SUPPLEMENTAL SCALE SQ SCH ×4 (09:31→20:03)
[2017-02-11] MEDS ORDERED: INFLUENZA VIRUS VACCINE (QUADRIVALENT) 0.5 ML SYR IM ONE (10:00)
--- NOTE | 2017-02-11 10:02 | HHI.FPPN ---
Subjective Remarks No acute events overnight. Pt lying in bed, doing well. Pain is well- controlled. Afebrile. VSS. Denies fevers, CP, SOB, and N/V. (Bernadine Lewis MD R1) Objective Vitals Vital Signs Date Time Temp Pulse Resp B/P (MAP) Pulse Ox O2 Delivery O2 Flow Rate FiO2 02/11/17 08:00 98.3 70 18 139/79 (99) 93 02/11/17 04:40 98.1 74 18 128/79 (95) 93 02/11/17 03:54 Room Air 02/11/17 00:00 Room Air 02/10/17 20:00 Room Air 02/10/17 19:58 98.3 70 18 135/76 (95) 94 02/10/17 16:07 98.7 85 18 131/75 (93) 94 02/10/17 12:58 Room Air 02/10/17 12:07 98.2 79 18 112/64 (80) 93 I/O 02/10/17 02/10/17 02/10/17 02/11/17 02/11/17 02/11/17 07:00 15:00 23:00 07:00 15:00 23:00 Intake Total 815 ml 1100 ml 1540 ml Balance 815 ml 1100 ml 1540 ml Intake Oral 240 ml 480 ml 960 ml IV Total 575 ml 620 ml 580 ml # Voids 4 5 4 # Bowel Movements 0 1 0 (Bernadine Lewis MD R1) Result Diagram: 02/11/17 0602/11/17 0629 Objective Remarks O. CONSTITUTIONAL/GEN: normally nourished, in NAD. EYES: conjunctiva normal, PERRLA, EOMI. ENT: Mouth and pharynx normal. NECK: thyroid midline, carotids symmetrical. Supple. LUNGS: clear A-P, respiratory effort is normal. CARDIOVASCULAR: RR without murmur or gallop. GI/ABD: soft without masses, without organomegaly. BS + : no CVA tenderness NEURO: Decreased sensation to light touch both feet distally. SKIN: color normal, no rashes noted. HEME/LYMPH: no bruising, petechia or significant adenopathy MUSC: back is normal in appearance. Distal right leg/foot with improvement in swelling. 1+ pitting edema right lower leg. 3 cm x 3 cm ulcer laterally at 5th MTP area. PSYCH/MENTAL STATUS: Alert and oriented x 3. (Bernadine Lewis MD R1) A/P Assessment and Plan 66 yo male with uncontrolled T2DM admitted for diabetic wound on right lateral forefoot Podiatry consulted. Discharge Planning Case management consultation. (Bernadine Lewis MD R1) Attending Attestation Patient seen and examined. Case reviewed and discussed with the resident team. Agree with plan of care as discussed with me and documented in the resident note. (Graciela Pruett MD) Problem List: (1) Diabetic foot ulcer ICD Codes: E11.621 - Type 2 diabetes mellitus with foot ulcer; L97.509 - Non- pressure chronic ulcer of other part of unspecified foot with unspecified severity Status: Acute Plan: 2 week hx of 3cm x 3cm diabetic wound on right lateral forefoot. Stage II ulceration with cellulitis. * Podiatry consulted, Dr. Wells, appreciated recs. * MRI shows no osteomyelitis * No surgery indicated at this time * Blood culture NGTD * Wound culture positive for Group B strep * Continue IV Zosyn and Vancomycin, patient will likely need to be discharge on two weeks of abx (2) Diabetes mellitus ICD Codes: E11.9 - Type 2 diabetes mellitus without complications Status: Chronic Plan: Uncontrolled T2DM * BG past 24hr 191-273 * BG goal 140-180 * Start Levemir 5 units * Continue Low dose SS * Continue metformin 500 mg bid. Take with food * perioperative educator consulted * Case management consulted (3) Nutrition, metabolism, and development symptoms ICD Codes: R63.8 - Other symptoms and signs concerning food and fluid intake Plan: Diet: Diabetic diet Fluids: Not indicated at this time Other: vitals q4h, monitor I& Os DVT ppx: heparin 5,000 units sq (Bernadine Lewis MD R1) Problem Qualifiers (1) Diabetic foot ulcer: (2) Diabetes mellitus: Bernadine Lewis MD Feb 11, 2017 10:02 Graciela Pruett MD Feb 11, 2017 14:19
[2017-02-11] MEDS ORDERED: PHARMACY ORDERED LAB ONE (11:45)
[2017-02-11 12:00] VITALS: BP 130/79; PULSE 77; RESP 18; TEMP 98.1; O2SAT 93
[2017-02-11] MEDS ORDERED: INSULIN ASPART SUPPLEMENTAL SCALE SQ SCH (12:00)
[2017-02-11] MEDS: VANCOMYCIN INJ 1,500 MG in SODIUM CHLORID 0.9% 500 ML INJ 500 ML IV SCH (12:38)
[2017-02-11] MEDS: ACETAMINOPHEN 325 MG TAB PO PRN (12:38)
[2017-02-11] MEDS: INSULIN DETEMIR 100 UNITS/ML VIAL SQ SCH ×2 (13:11→20:03)
[2017-02-11 16:10] VITALS: BP 138/78; PULSE 75; RESP 18; TEMP 98.5; O2SAT 95
[2017-02-11 20:00] VITALS: BP 140/84; PULSE 73; RESP 19; TEMP 98.3; O2SAT 95
[2017-02-12] VITALS: BP 132/82; PULSE 68; RESP 22; TEMP 98.2; O2SAT 95
[2017-02-12] MEDS: VANCOMYCIN INJ 1,500 MG in SODIUM CHLORID 0.9% 500 ML INJ 500 ML IV SCH ×3 (00:19→23:24)
[2017-02-12] MEDS: PIPERACIL-TAZO 3.375 GM PREMIX 50 ML IV SCH ×4 (03:14→20:51)
[2017-02-12 04:00] VITALS: BP 141/87; PULSE 75; RESP 18; TEMP 98; O2SAT 93
[2017-02-12] MEDS: INSULIN ASPART SUPPLEMENTAL SCALE SQ SCH ×4 (08:00→20:51)
[2017-02-12] MEDS: INSULIN DETEMIR 100 UNITS/ML VIAL SQ SCH ×2 (09:00→20:50)
[2017-02-12] MEDS: COLLAGENASE OINT 30 GM TUBE TOPICAL SCH (09:00)
[2017-02-12] MEDS: DOCUSATE SODIUM 50 MG/SENNA 8.6 MG TAB PO SCH ×2 (09:00→20:51)
[2017-02-12] MEDS: metFORMIN HCL 500 MG TAB PO SCH ×2 (09:03→17:03)
[2017-02-12] MEDS: SODIUM CHLORIDE 0.9% FLUSH 10 ML FLUSH IV FLUSH SCH ×2 (09:04→20:52)
[2017-02-12] MEDS: ACETAMINOPHEN 325 MG TAB PO PRN (12:08)
--- NOTE | 2017-02-12 13:11 | PD.POD ---
Subjective Podiatric Problems Right foot ulcer with improving cellulitis. Pt states that he is feeling well and denies any n/v/f/h/c/sob/pain. Pain score: 0 Past Med/Surg/Social History Social History Smoking Status: Never Smoker Objective Vital Signs Vital Signs Date Time Temp Pulse Resp B/P (MAP) Pulse Ox O2 Delivery O2 Flow Rate FiO2 02/12/17 07:30 Room Air 02/12/17 04:16 Room Air 02/12/17 04:00 98.0 75 18 141/87 (105) 93 02/12/17 00:00 98.2 68 22 132/82 (99) 95 02/11/17 20:00 98.3 73 19 140/84 (102) 95 02/11/17 16:10 98.5 75 18 138/78 (98) 95 Coded Allergies: No Known Allergies (Unverified , 02/09/17) Exam-Podiatry Remarks Neuro, Bio, and Vasc- unchanged Derm- right foot plantar lateral ulcer 2.5 x 2.5 x 0cm, fibrogranular wound bed , slight periwound erythema, decreased edema, no malodor, serosangious drainage Assessment & Plan A/P 1) right foot stage 2 ulcer with resolving cellulitis -cont daily wound care with santyl -ok to d/c on 2 weeks of PO abx pending cx results and further improvement of WBC -WBAT in surgical shoe- will offload in the office -f/u with 5 days after discharge Yesy Wells DPM Feb 12, 2017 13:11
--- NOTE | 2017-02-12 14:03 | HHI.FPPN ---
Subjective Remarks No acute events overnight. Pt doing well this AM. Afebrile. VSS. Eating well and good UOP. Denies CP, SOB, and N/V. (Bernadine Lewis MD R1) Objective Vitals Vital Signs Date Time Temp Pulse Resp B/P (MAP) Pulse Ox O2 Delivery O2 Flow Rate FiO2 02/12/17 07:30 Room Air 02/12/17 04:16 Room Air 02/12/17 04:00 98.0 75 18 141/87 (105) 93 02/12/17 00:00 98.2 68 22 132/82 (99) 95 02/11/17 20:00 98.3 73 19 140/84 (102) 95 02/11/17 16:10 98.5 75 18 138/78 (98) 95 I/O 02/11/17 02/11/17 02/11/17 02/12/17 02/12/17 02/12/17 07:00 15:00 23:00 07:00 15:00 23:00 Intake Total 1540 ml 1010 ml 1045 ml Output Total 1200 ml Balance 1540 ml -190 ml 1045 ml Intake Oral 960 ml 960 ml 480 ml IV Total 580 ml 50 ml 565 ml Output Urine Total 1200 ml # Voids 4 4 # Bowel Movements 0 1 0 (Bernadine Lewis MD R1) Result Diagram: 02/11/17 0602/11/17 0629 Objective Remarks O. CONSTITUTIONAL/GEN: normally nourished, in NAD. LUNGS: CTAB CARDIOVASCULAR: RRR no m/r/g GI/ABD: soft without masses, without organomegaly. BS + : no CVA tenderness NEURO: Decreased sensation to light touch both feet distally. SKIN: color normal, no rashes noted. HEME/LYMPH: no bruising, petechia or significant adenopathy MUSC: right lateral forefoot wrapped in gauze, mild edema, improving, pedal pulses 2+ PSYCH/MENTAL STATUS: Alert and oriented x 3. (Bernadine Lewis MD R1) A/P Assessment and Plan 66 yo male with uncontrolled T2DM admitted for diabetic wound on right lateral forefoot Podiatry consulted. Discharge Planning Case management consultation. (Bernadine Lewis MD R1) Attending Attestation Patient seen and examined. Case reviewed and discussed with the resident team. Agree with plan of care as discussed with me and documented in the resident note. (Graciela Pruett MD) Problem List: (1) Diabetic foot ulcer ICD Codes: E11.621 - Type 2 diabetes mellitus with foot ulcer; L97.509 - Non- pressure chronic ulcer of other part of unspecified foot with unspecified severity Status: Acute Plan: 2 week hx of 3cm x 3cm diabetic wound on right lateral forefoot. Stage II ulceration with cellulitis. * Podiatry consulted, Dr. Wells, appreciated recs. * MRI shows no osteomyelitis * No surgery indicated at this time * Blood culture NGTD * Preliminary wound culture positive for Group B strep, Acinetobacter, Staph Aureus, awaiting final results * Continue IV Zosyn and Vancomycin, patient will likely need to be discharge on two weeks of PO abx (2) Diabetes mellitus ICD Codes: E11.9 - Type 2 diabetes mellitus without complications Status: Chronic Plan: Uncontrolled T2DM * BG past 24hr 182-241 * BG goal 140-180 * Increase Levemir 10 units q12hr * Continue Low dose SS * Continue metformin 500 mg bid. Take with food * pit hoist operator consulted * Case management consulted (3) Nutrition, metabolism, and development symptoms ICD Codes: R63.8 - Other symptoms and signs concerning food and fluid intake Plan: Diet: Diabetic diet Fluids: Not indicated at this time Other: vitals q4h, monitor I& Os DVT ppx: heparin 5,000 units sq (Bernadine Lewis MD R1) Problem Qualifiers (1) Diabetic foot ulcer: (2) Diabetes mellitus: Bernadine Lewis MD R1 Feb 12, 2017 14:03 Graciela Pruett MD Feb 12, 2017 15:32
[2017-02-12 16:00] VITALS: BP 132/75; PULSE 73; RESP 18; TEMP 98.2; O2SAT 94
[2017-02-12 20:00] VITALS: BP 135/79; PULSE 72; RESP 18; TEMP 97.8; O2SAT 96
[2017-02-13] VITALS: BP 157/93; PULSE 70; RESP 18; TEMP 97.6; O2SAT 96
[2017-02-13] MEDS: ACETAMINOPHEN 325 MG TAB PO PRN ×2 (01:32→16:25)
[2017-02-13] MEDS: PIPERACIL-TAZO 3.375 GM PREMIX 50 ML IV SCH ×3 (03:04→16:25)
[2017-02-13 04:00] VITALS: BP 139/83; PULSE 70; RESP 18; TEMP 97.6; O2SAT 97
--- NOTE | 2017-02-13 07:45 | HHI.FPPN ---
Subjective Remarks No acute events overnight. Afebrile, vitals stable. Patient states his pain continues to be well-controlled. He is able to ambulate without issues. Denies fevers or chills, chest pain, shortness of breath. He otherwise does not have any specific complaints or concerns. (Tanner Valdez MD R2) Objective Vitals Vital Signs Date Time Temp Pulse Resp B/P (MAP) Pulse Ox O2 Delivery O2 Flow Rate FiO2 02/13/17 04:00 97.6 70 18 139/83 (101) 97 02/13/17 00:00 97.6 70 18 157/93 (114) 96 02/12/17 20:15 Room Air 02/12/17 20:00 97.8 72 18 135/79 (97) 96 02/12/17 16:00 98.2 73 18 132/75 (94) 94 I/O 02/12/17 02/12/17 02/12/17 02/13/17 02/13/17 02/13/17 07:00 15:00 23:00 07:00 15:00 23:00 Intake Total 1045 ml 1010 ml 1030 ml Balance 1045 ml 1010 ml 1030 ml Intake Oral 480 ml 960 ml 480 ml IV Total 565 ml 50 ml 550 ml # Voids 4 3 3 # Bowel Movements 0 1 0 (Tanner Valdez MD R2) Result Diagram: 02/11/1762802/11/17628 Objective Remarks GEN: normally nourished, in NAD. LUNGS: CTAB CARDIOVASCULAR: RRR no m/r/g GI/ABD: soft without masses, without organomegaly. BS + NEURO: Decreased sensation to light touch both feet distally. SKIN: color normal, no rashes noted. Plantar lateral aspect of right foot: ulcer measuring approximately 2.5 circular ulcer, minimal surrounding erythema, malodorous, no active bleeding or drainage HEME/LYMPH: no bruising, petechia or significant adenopathy MUSC: mild edema, improving, pedal pulses 2+ PSYCH/MENTAL STATUS: Alert and oriented x 3. (Tanner Valdez MD R2) A/P Assessment and Plan 66 yo male with uncontrolled T2DM admitted for diabetic wound on right lateral forefoot Discharge Planning Stable for discharge home today (Tanner Valdez MD R2) Attending Attestation Patient seen and examined. Case reviewed and discussed with the resident team. Agree with plan of care as discussed with me and documented in the resident note. (Graciela Pruett MD) Problem List: (1) Diabetic foot ulcer ICD Codes: E11.621 - Type 2 diabetes mellitus with foot ulcer; L97.509 - Non- pressure chronic ulcer of other part of unspecified foot with unspecified severity Status: Acute Plan: 2 week hx of 3cm x 3cm diabetic wound on right lateral forefoot. Stage II ulceration with cellulitis. * Podiatry consulted, Dr. Wells, appreciated recs. * MRI shows no osteomyelitis * No surgery indicated at this time * Blood culture NGTD * Finalized wound cultures showing pansensitive Acinetobacter, MSSA * Will discharge home on PO Levaquin 750 mg 2 weeks * Follow-up with podiatry, Dr. Fontanez in 5 days (2) Diabetes mellitus ICD Codes: E11.9 - Type 2 diabetes mellitus without complications Status: Chronic Plan: Uncontrolled T2DM * BG goal 140-180 * Continue Levemir 10 units q12hr * Continue Low dose SS * Continue metformin 500 mg bid * paper folding machine operator consulted * Case management consulted (3) Nutrition, metabolism, and development symptoms ICD Codes: R63.8 - Other symptoms and signs concerning food and fluid intake Plan: Diet: Diabetic diet Fluids: Not indicated at this time DVT ppx: heparin 5,000 units sq (Tanner Valdez MD R2) Problem Qualifiers (1) Diabetic foot ulcer: (2) Diabetes mellitus: Tanner Valdez MD R2 Feb 13, 2017 07:45 Graciela Pruett MD Feb 13, 2017 18:41
[2017-02-13 08:00] VITALS: BP 148/83; PULSE 75; RESP 19; TEMP 98.3; O2SAT 93
[2017-02-13] MEDS: INSULIN ASPART SUPPLEMENTAL SCALE SQ SCH ×3 (08:00→17:57)
[2017-02-13] MEDS: DOCUSATE SODIUM 50 MG/SENNA 8.6 MG TAB PO SCH (09:21)
[2017-02-13] MEDS: metFORMIN HCL 500 MG TAB PO SCH ×2 (09:21→17:56)
[2017-02-13] MEDS: INSULIN DETEMIR 100 UNITS/ML VIAL SQ SCH (09:22)
[2017-02-13] MEDS: COLLAGENASE OINT 30 GM TUBE TOPICAL SCH (09:23)
[2017-02-13] MEDS: SODIUM CHLORIDE 0.9% FLUSH 10 ML FLUSH IV FLUSH SCH (09:26)
[2017-02-13] MEDS ORDERED: PHARMACY ORDERED LAB ONE (11:45)
[2017-02-13 12:00] VITALS: BP 145/83; PULSE 85; RESP 19; TEMP 98.3; O2SAT 93
[2017-02-13] MEDS: VANCOMYCIN INJ 1,500 MG in SODIUM CHLORID 0.9% 500 ML INJ 500 ML IV SCH (12:12)
[2017-02-13] MEDS ORDERED: LEVEMIR SQ (13:30)
[2017-02-13] MEDS ORDERED: METF500 PO (13:30)
[2017-02-13] MEDS ORDERED: LEVA750T9 PO (13:30)
--- NOTE | 2017-02-13 13:32 | HHI.DCPOC ---
Discharge Care Plan Diagnosis: (1) Diabetes mellitus (2) Diabetic foot ulcer Goals to Promote Your Health * To prevent worsening of your condition and complications, follow-up with your primary care physician as well as your fruit stuffer, Dr. Fontanez 5 days after hospital discharge. Continue taking your antibiotics as instructed for a total of 2 weeks after hospital discharge. Directions to Meet Your Goals Take your medications as prescribed Follow your dietary instruction Follow activity as directed Keep your appointments as scheduled Take your immunizations and boosters as scheduled If your symptoms worsen call your PCP, if no PCP go to Urgent Care Center or Emergency Room Smoking is Dangerous to Your Health. Avoid second hand smoke Call the 24-hour hour crisis hotline for domestic abuse at Tanner Valdez MD R2 Feb 13, 2017 13:32
[2017-02-13 16:00] VITALS: BP 156/81; PULSE 77; RESP 19; TEMP 97.5; O2SAT 96
--- NOTE | 2017-02-13 16:16 | HHI.DS ---
Discharge Summary Admission Date Feb 09, 2017 at 15:14 Discharge Date: Feb 13, 2017 Admitting Diagnosis diabetic foot wound (1) Diabetic foot ulcer Diagnosis: Principal Plan: 2 week hx of 3cm x 3cm diabetic wound on right lateral forefoot. Stage II ulceration with cellulitis. * Podiatry consulted, Dr. Wells, appreciated recs. * MRI shows no osteomyelitis * No surgery indicated at this time * Blood culture NGTD * Finalized wound cultures showing pansensitive Acinetobacter, MSSA * Will discharge home on PO Levaquin 750 mg 2 weeks * Follow-up with podiatry, Dr. Fontanez in 5 days ICD Codes: E11.621 - Type 2 diabetes mellitus with foot ulcer; L97.509 - Non- pressure chronic ulcer of other part of unspecified foot with unspecified severity Status: Acute (2) Diabetes mellitus Diagnosis: Principal Plan: Uncontrolled T2DM * BG goal 140-180 * Continue Levemir 10 units q12hr * Continue Low dose SS * Continue metformin 500 mg bid * die technician consulted * Case management consulted ICD Codes: E11.9 - Type 2 diabetes mellitus without complications Status: Chronic (3) Nutrition, metabolism, and development symptoms Diagnosis: Secondary Plan: Diet: Diabetic diet Fluids: Not indicated at this time DVT ppx: heparin 5,000 units sq ICD Codes: R63.8 - Other symptoms and signs concerning food and fluid intake Consultants Podiatry Brief History 66 yr old M w/ PMHx of uncontrolled T2DM presents to the ED from Dr. Fontanez's office for diabetic foot wound. He reports getting a cut on his right lateral forefoot2 weeks ago. He states the the wound has been worsening. He noticed a lot of swelling on and decided to make an appointment to see his longwall machine operator helper. He reports taking Januvia BID for his DM. He has not been able to afford his medications for the past month due to insurance issues and has been taking herbal supplements instead. He has been checking his sugars once a week in the mornings before breakfast. They have been running 200-280. His last A1c was in June of this year and was 8.5-9% per patient. He endorses 50% loss of sensation in his feet, most likely due to diabetic neuropathy. He denies fever, chills, night sweats, CP, SOB, and N/V. CBC/BMP: 02/11/17 0629 02/11/17 0629 Significant Findings Laboratory Tests Test 02/11/17 06:29 02/11/17 12:00 02/13/17 11:30 Hematocrit 38.0 % (39.0-51.0) Random Glucose 206 MG/DL (74-106) Albumin 2.8 GM/DL (3.4-5.0) Calcium Level 8.4 MG/DL (8.5-10.1) Aspartate Amino Transf (AST/SGOT) 10 U/L (15-37) Vancomycin Level Trough 10.1 MCG/ML (5.0-10.0) 19.0 MCG/ML (5.0-10.0) Imaging Foot MRI 02/09: No definite evidence for osteomyelitis. Cellulitis of the lateral forefoot. Surgical hardware present PE at Discharge GEN: normally nourished, in NAD. LUNGS: CTAB CARDIOVASCULAR: RRR no m/r/g GI/ABD: soft without masses, without organomegaly. BS + NEURO: Decreased sensation to light touch both feet distally. SKIN: color normal, no rashes noted. Plantar lateral aspect of right foot: ulcer measuring approximately 2.5 circular ulcer, minimal surrounding erythema, malodorous, no active bleeding or drainage HEME/LYMPH: no bruising, petechia or significant adenopathy MUSC: mild edema, improving, pedal pulses 2+ PSYCH/MENTAL STATUS: Alert and oriented x 3. Hospital Course Patient was started on IV vancomycin and Zosyn. Final results of wound cultures returned pansensitive Acinetobacter as well as methicillin sensitive staph aureus. Blood cultures remained negative. The patient did not have any complications while hospitalized. He was instructed to complete an additional 2 weeks of PO Levaquin 750 mg daily, and to follow-up with his longwall machine operator helper after 5 days. The patient's pain was minimal and did not require opioid analgesics. Pt Condition on Discharge: Stable Discharge Disposition: Discharge Home Discharge Instructions DIET: Follow Instructions for: Diabetic Diet Activities you can perform: Weight Bearing as Shahab Follow up Referrals: PCP Follow-up - 1 Week Podiatry - 3-5 Days with Jaziel Fontanez DPM New Medications: Levofloxacin (Levaquin) 750 Mg Tablet 750 MG PO DAILY for Infection, #14 TAB 0 Refills Insulin Detemir Inj (Levemir Inj) 1,000 unit/ 10 ML Vial 10 UNITS SQ Q12HR, #1 VIAL Do not mix with any other Insulin. Metformin (Glucophage) 500 Mg Tab 500 MG PO BIDPC, #60 TAB Tanner Valdez MD R2 Feb 13, 2017 16:16
[2017-02-13] MEDS ORDERED: BLOO1KIT65 (16:49)
[2017-02-13] MEDS ORDERED: BD I (16:49)
[2017-02-13] MEDS ORDERED: LANCETS1 MI1 (16:49)
[2017-02-13] MEDS ORDERED: BLOOD GLUCOSE T1 TES (16:49)
[2017-02-14] MEDS ORDERED: PHARMACY ORDERED LAB ONE (23:45)
== END 2017-02-13 18:10 | disposition home or self-care (01) | DRG 638 ==
LOC: NEPC 14:12 → NEDA 15:14 → N04B 16:15
PROVIDERS: ADMIT Family Medicine; ATTEND Family Medicine
DX: E11.621 Type 2 diabetes mellitus with foot ulcer (principal); L03.115 Cellulitis of right lower limb; L97.519 Non-pressure chronic ulcer of other part of right foot with unspecified severity; E11.42 Type 2 diabetes mellitus with diabetic polyneuropathy; E11.628 Type 2 diabetes mellitus with other skin complications; E11.65 Type 2 diabetes mellitus with hyperglycemia; T38.3X6A Underdosing of insulin and oral hypoglycemic [antidiabetic] drugs, initial encounter; F32.9 Major depressive disorder, single episode, unspecified; B95.1 Streptococcus, group B, as the cause of diseases classified elsewhere; B95.61 Methicillin susceptible Staphylococcus aureus infection as the cause of diseases classified elsewhere; B96.89 Other specified bacterial agents as the cause of diseases classified elsewhere; Z79.84 Long term (current) use of oral hypoglycemic drugs; Z91.120 Patient's intentional underdosing of medication regimen due to financial hardship
CPT/HCPCS: 73720; 80048; 80053; 80202; 82948; 83036; 85025; 85610; 85652; 85730; 86140; 86403; 87040; 87070; 87077; 87147; 87186; 90686; 90715; 99285; A9579; J1644; J1815; J2543; J3370; J7040; J7050; L3260; Q2038